=== PATIENT | female | born 1935 | race Caucasian/White ===

== ENCOUNTER 2016-09-13 03:45 | Emergency (ER) | payer MEDICARE, OTHER | END 2016-09-13 05:14 | disposition home or self-care (01) | LOC: FER 03:45 | DX: S76.011A Strain of muscle, fascia and tendon of right hip, initial encounter (principal); M16.0 Bilateral primary osteoarthritis of hip; E11.9 Type 2 diabetes mellitus without complications; I10 Essential (primary) hypertension; Z85.3 Personal history of malignant neoplasm of breast; Z88.8 Allergy status to other drugs, medicaments and biological substances; Z79.84 Long term (current) use of oral hypoglycemic drugs; Z79.899 Other long term (current) drug therapy; Z90.12 Acquired absence of left breast and nipple; Z96.652 Presence of left artificial knee joint; W07.XXXA Fall from chair, initial encounter | CPT/HCPCS: 72170; J1885 ==